=== PATIENT | male | born 1965 | race Hispanic/Latino ===

== ENCOUNTER 2017-11-06 19:54 | Emergency (ER) | payer OTHER ==
[2017-11-06 21:00] LABS: Urine Blood 1+ (NEG); Urine Glucose NEGATIVE (NEG); Urine Protein NEGATIVE (NEG)
[2017-11-06 21:17] LABS: Absolute Lymphocytes (CBC) 2.4 K/uL (0.7-4.9); Absolute Monocytes 1.3 K/uL (0.1-1.3); Absolute Neutrophil 10.4 K/uL (1.8-8.0); Basophils % 0.4 % (0-1.3); Eosinophils % 1.4 % (0-4.4); Hematocrit 43.9 % (39.6-49.0); Lymphocytes % 16.5 % (15.3-44.8); MCH 29.5 pg (27.0-35.0); MCV 86.7 fL (80-100); MPV 8.2 fL (7.6-11.3); Monocytes % 9.1 % (3.3-12.3); RBC Red Blood Cell Count 5.06 M/uL (4.33-5.43)
[2017-11-06 21:22] LABS: Urine Bacteria <20 /HPF (NONE SEEN); Urine Culture Reflex Order NOT NEEDED; Urine RBC <5 /HPF (NONE SEEN)
[2017-11-06 21:27] LABS: Potassium 3.9 mEq/L (3.6-5.0)
--- NOTE | 2017-11-06 21:31 | RAD REPORT ---
EXAM DESCRIPTION: CT - Abdomen Pelvis Wo Contrast - 11/06/2017 9:21 pm CLINICAL HISTORY: Abdominal pain. COMPARISON: None TECHNIQUE: CT imaging of the abdomen and pelvis was performed without contrast. Solid organ, bowel a nd vascular assessment is limited due to lack of IV and oral contrast. All CT scans are performed using dose optimization technique as appropriate and may include automated exposure control or mA/KV adjustment according to patient size. FINDINGS: The lower lung russo are clear. The liver, spleen, pancreas, right adrenal gland and kidneys are within normal limits for a limited n on-contrast examination.19 mm left adrenal adenoma noted. No bowel obstruction, free air, free fluid or abscess. 5 cm length of sigmoid colon demonstrates mode rate pericolonic inflammatory changes. Several diverticula present in this location. The most likely diagnosis is acute diverticulitis. No peridiverticular abscess seen. The appendix is normal. The osseous structures are within normal limits. IMPRESSION: Moderately severe acute diverticulitis suspected involving 5 cm length of the sigmoid co golden. No peridiverticular abscess identified. Advise followup colonoscopy up after appropriate therapy to exclude the possibility of inflammatory m ass/ malignancy. A limited non-contrast examination was performed as detailed.
[2017-11-06 21:33] LABS: Albumin 3.8 g/dL (3.2-5.5); Bilirubin Direct 0.1 mg/dL (0-0.2); Bilirubin Total 0.7 mg/dL (0.3-1.2); Protein, Total 7.1 g/dL (6.0-8.3)
--- NOTE | 2017-11-06 22:14 | ER ---
Nurse's Notes [facility] Name: Roland Govea Age: 52 yrs Sex: Male : 1965 Arrival Date: 11/06/2017 Time: 19:57 Bed 18 Private MD: Marlon Britton T Diagnosis: Diverticulitis of large intestine without perforation or abscess without bleeding Presentation: 11/06 20:00 Presenting complaint: Patient states: lower abd pain that radiates to back since aa1 yesterday. Denies N/V/D or urinary problems. Transition of care: patient was not received from another setting of care. Onset of symptoms was November 05, 2017. Care prior to arrival: None. 20:00 Method Of Arrival: Ambulatory aa1 20:00 Acuity: BEKA 3 aa1 Triage Assessment: 20:02 General: Appears in no apparent distress. comfortable, Behavior is calm, cooperative, aa1 appropriate for age. Historical: - Allergies: 20:02 No Known Allergies; aa1 - Home Meds: 20:02 losartan Oral [Active]; aa1 - PMHx: 20:02 chronic back pain; Hypertension; aa1 - PSHx: 20:02 Knee surgery; aa1 - Immunization history:: Flu vaccine is not up to date. - Social history:: Smoking status: Patient/guardian denies using tobacco. Screenin:51 Abuse screen: Denies threats or abuse. Denies injuries from another. Nutritional bp screening: No deficits noted. Tuberculosis screening: No symptoms or risk factors identified. Fall Risk None identified. Assessment: 20:51 General: Appears in no apparent distress. uncomfortable, Behavior is calm, cooperative, bp appropriate for age. Pain: Complains of pain in abdomen. Neuro: Level of Consciousness is awake, alert, obeys commands, Oriented to person, place, time, situation, Appropriate for age. Cardiovascular: No deficits noted. Respiratory: Airway is patent Respiratory effort is even, unlabored, Respiratory pattern is regular, symmetrical. GI: Bowel sounds present X 4 quads. Abd is soft X 4 quads. 21:39 Reassessment: ALL CURRENT ORDERS COMPLETED, AWAITING MD RE-EVAL AND DISPO. bp 22:30 Reassessment: PT D/C HOME AMBULATORY WITH FAMILY, DX WITH DIVERTICULITIS. bp Vital Signs: 20:02 BP 155 / 91; Pulse 94; Resp 16; Temp 97.7; Pulse Ox 97% on R/A; Weight 99.79 kg (R); aa1 Height 5 ft. 5 in. (165.10 cm) (R); Pain 8/10; 21:48 BP 137 / 96; Pulse 83; Resp 16; Pulse Ox 97% ; bp 20:02 Body Mass Index 36.61 (99.79 kg, 165.10 cm) aa1 ED Course: 19:57 Patient arrived in ED. es 19:57 Marlon Britton MD is Private Physician. es 20:02 Triage completed. aa1 20:02 Arm band placed on right wrist. Patient placed in waiting room, Patient notified of aa1 wait time. 20:29 Flynn Pardo, RN is Primary Nurse. bp 20:43 Urine collected: clean catch specimen, clear. aa1 20:48 Dania Hernandez MD is Attending Physician. ma2 20:51 Patient has correct armband on for positive identification. Bed in low position. Call bp light in reach. Side rails up X2. Adult w/ patient. 20:57 Inserted saline lock: 20 gauge in right upper arm, using aseptic technique. Blood bp collected. 21:20 CT completed. Patient moved to CT via wheelchair. Patient moved back from CT. cw1 21:21 CT Abd/Pelvis - Without Cont In Process Unspecified. EDMS 22:51 No provider procedures requiring assistance completed. IV discontinued, intact, bp bleeding controlled, No redness/swelling at site. Pressure dressing applied. Administered Medications: 22:30 Drug: TORadol 30 mg Route: IVP; Site: right upper arm; bp 22:30 Follow up: Response: Medication administered at discharge. bp Outcome: 22:14 Discharge ordered by . ma2 22:51 Discharged to home ambulatory, with family. bp 22:51 Condition: stable 22:51 Discharge instructions given to patient, Instructed on discharge instructions, follow up and referral plans. medication usage, Demonstrated understanding of instructions, follow-up care, medications, Prescriptions given X 3. 22:52 Patient left the ED. bp Signatures: Dispatcher [employer] EDMS Ida Atkinson RN RN aa1 Diamond Magdaleno Crystal cw1 Flynn Pardo, ALMA RN bp Dania Hernandez MD MD ma2
--- NOTE | 2017-11-06 22:14 | EDPHYS ---
Physician Documentation [facility] Name: Roland Govea Age: 52 yrs Sex: Male : 1965 Arrival Date: 11/06/2017 Time: 19:57 Bed 18 Private MD: Marlon Britton T ED Physician Dania Hernandez HPI: 11/06 21:04 This 52 yrs old Male presents to ER via Ambulatory with complaints of ma2 Abdominal Pain. 21:04 The patient presents with abdominal pain in the periumbilical area. abdominal ma2 distention. Onset: The symptoms/episode began/occurred gradually, 2 day(s) ago. Associated signs and symptoms: Pertinent positives: bilat flank pain and surapubic pain . The symptoms are described as constant. Severity of pain: At its worst the pain was mild in the emergency department the pain has improved. The patient has not experienced similar symptoms in the past. Historical: - Allergies: 20:02 No Known Allergies; aa1 - Home Meds: 20:02 losartan Oral [Active]; aa1 - PMHx: 20:02 chronic back pain; Hypertension; aa1 - PSHx: 20:02 Knee surgery; aa1 - Immunization history:: Flu vaccine is not up to date. - Social history:: Smoking status: Patient/guardian denies using tobacco. ROS: 21:04 Constitutional: Negative for fever, chills, and weight loss, Eyes: Negative for injury, ma2 pain, redness, and discharge, Cardiovascular: Negative for chest pain, palpitations, and edema, Respiratory: Negative for shortness of breath, cough, wheezing, and pleuritic chest pain, Back: Negative for injury and pain, : Negative for injury, bleeding, discharge, and swelling, MS/Extremity: Negative for injury and deformity, Skin: Negative for injury, rash, and discoloration, Neuro: Negative for headache, weakness, numbness, tingling, and seizure, Psych: Negative for depression, anxiety, suicide ideation, homicidal ideation, and hallucinations, Allergy/Immunology: Negative for hives, rash, and allergies, Endocrine: Negative for neck swelling, polydipsia, polyuria, polyphagia, and marked weight changes. 21:04 All other systems are negative. Exam: 21:04 Constitutional: This is a well developed, well nourished patient who is awake, alert, ma2 and in no acute distress. Head/Face: Normocephalic, atraumatic. Eyes: Pupils equal round and reactive to light, extra-ocular motions intact. Lids and lashes normal. Conjunctiva and sclera are non-icteric and not injected. Cornea within normal limits. Periorbital areas with no swelling, redness, or edema. Neck: Trachea midline, no thyromegaly or masses palpated, and no cervical lymphadenopathy. Supple, full range of motion without nuchal rigidity, or vertebral point tenderness. No Meningismus. Cardiovascular: Regular rate and rhythm with a normal S1 and S2. No gallops, murmurs, or rubs. Normal PMI, no JVD. No pulse deficits. Respiratory: Lungs have equal breath sounds bilaterally, clear to auscultation and percussion. No rales, rhonchi or wheezes noted. No increased work of breathing, no retractions or nasal flaring. 21:04 Abdomen/GI: Palpation: mild abdominal tenderness, moderate abdominal tenderness, in the suprapubic area, posterior aspect of left lateral abdomen, posterior aspect of right lateral abdomen, right upper quadrant and left upper quadrant. Vital Signs: 20:02 BP 155 / 91; Pulse 94; Resp 16; Temp 97.7; Pulse Ox 97% on R/A; Weight 99.79 kg (R); aa1 Height 5 ft. 5 in. (165.10 cm) (R); Pain 8/10; 21:48 BP 137 / 96; Pulse 83; Resp 16; Pulse Ox 97% ; bp 20:02 Body Mass Index 36.61 (99.79 kg, 165.10 cm) aa1 MDM: 20:48 Patient medically screened. ma2 21:04 Differential diagnosis: diverticulitis, gastritis, Hepatitis, Pyelonephritis, ma2 Ureterolithiasis, urinary tract infection. 22:11 Data reviewed: vital signs, nurses notes, EMS record, radiologic studies. Counseling: I ma2 had a detailed discussion with the patient and/or guardian regarding: the historical points, exam findings, and any diagnostic results supporting the discharge/admit diagnosis, the presence of at least one elevated blood pressure reading (>120/80) during this emergency department visit, the need for outpatient follow up. ED course: he declined pain medicine in er . 11/06 20:49 Order name: Urine Dipstick--Ancillary (enter results); Complete Time: 22:11 1 11/06 21:00 Order name: Amylase, Serum; Complete Time: 22:11 ne2 11/06 21:00 Order name: Basic Metabolic Panel; Complete Time: 22:11 ma2 11/06 21:00 Order name: CBC with Diff; Complete Time: 22:11 ne2 11/06 21:00 Order name: Creatinine for Radiology; Complete Time: 22:11 ne2 11/06 21:00 Order name: Hepatic Function; Complete Time: 22:11 ma2 11/06 21:00 Order name: Lipase; Complete Time: 22:11 ne2 11/06 21:00 Order name: Urine Microscopic Only; Complete Time: 22:11 ne2 11/06 21:00 Order name: IV Saline Lock; Complete Time: 21:05 ma2 11/06 21:00 Order name: Labs collected and sent; Complete Time: 21:05 ne2 11/06 21:00 Order name: Urine Dipstick-Ancillary (obtain specimen); Complete Time: 21:05 [facility] 11/06 21:01 Order name: CT Abd/Pelvis - Without Cont; Complete Time: 22:11 ma2 Administered Medications: 22:30 Drug: TORadol 30 mg Route: IVP; Site: right upper arm; bp 22:30 Follow up: Response: Medication administered at discharge. bp Disposition: 11/06/17 22:14 Discharged to Home. Impression: Diverticulitis of large intestine without perforation or abscess without bleeding. - Condition is Stable. - Discharge Instructions: Diverticulitis. - Prescriptions for Flagyl 500 mg Oral Tablet - take 1 tablet by ORAL route every 6 hours for 10 days; 40 tablet. Tylenol- Codeine #3 300-30 mg Oral Tablet - take 2 tablet by ORAL route every 6 hours As needed; 30 tablet. Cipro 500 mg Oral Tablet - take 1 tablet by ORAL route every 12 hours for 7 days; 14 tablet. - Medication Reconciliation Form, Thank You Letter, Antibiotic Education, Prescription Opioid Use form. - Follow up: Private Physician; When: 48 Hours; Reason: Continuance of care. - Problem is new. - Symptoms are unchanged. - Notes: you will need colonoscopy in 1 month. follow up with your primary care doctor Signatures: Dispatcher [facility] Ida Tena, RN RN aa1 Flynn Pardo RN RN bp Dania Hernandez MD MD ma2
[2017-11-06] MEDS ORDERED: KETOROLAC 30 MG/ML INJ ONE (22:45)
== END 2017-11-06 22:52 | disposition home or self-care (01) ==
LOC: ER 19:54
DX: K57.32 Diverticulitis of large intestine without perforation or abscess without bleeding (principal); I10 Essential (primary) hypertension
CPT/HCPCS: 36415; 74176; 80048; 80076; 81003; 81015; 82150; 83690; 85025; 96374; 99284